=== PATIENT | male | born 1995 | race Caucasian/White ===

== ENCOUNTER 2017-11-07 14:07 | Emergency (ER) | payer SELFPAY | END 2017-11-07 15:33 | disposition home or self-care (01) | LOC: D.ER 14:07 | DX: T78.40XA Allergy, unspecified, initial encounter (principal); X58.XXXA Exposure to other specified factors, initial encounter ==

== ENCOUNTER 2019-07-10 20:41 | Emergency (ER) | payer SELFPAY ==
[~2019-07-10] VITALS: Ht 177.8 cm; Wt 59.0 kg
[2019-07-10 21:23] VITALS: Ht 177.8 cm; Wt 59.0 kg
[2019-07-10] MEDS ORDERED: OMEPRAZOLE20 M1 PO (23:54)
[2019-07-11 00:21] VITALS: BP 108/76
== END 2019-07-11 00:21 | disposition home or self-care (01) ==
LOC: D.ER 20:41
DX: K21.9 Gastro-esophageal reflux disease without esophagitis (principal); M54.2 Cervicalgia